=== PATIENT | female | born 1975 | race Hispanic/Latino ===

== ENCOUNTER 2018-06-08 10:34 | Emergency (ER) | payer BC ==
[~2018-06-08] VITALS: Ht 152.4 cm; Wt 85.7 kg
--- OUTSIDE RECORDS SUMMARY | 2018-06-08 10:37 | XMS REPORT ---
Author Author Admin, [place] Organization [facility] Address [address] [address] Phone Allergies, Adverse Reactions, Alerts Allergy Name Reaction Description Start Date Severity Status Provider SHRIMP Critical Active Eden Perry MD Conditions or Problems Problem Name Problem Code Onset Date Status Entry Date Provider Comment Standard Description Annotate Hepatitis B immunization V05.3 Active Eden Perry MD Need for prophylactic vaccination and inoculation against viral hepatitis Hypertriglyceridemia 272.1 Active Eden Perry MD Pure hyperglyceridemia Pre-op exam V72.84 Active Eden Perry MD Preoperative examination, unspecified Abdominal pain 789.00 Active Eden Perry MD Abdominal pain, unspecified site Unspecified ovarian cyst, right side 620.2 Active Eden Perry MD Other and unspecified ovarian cyst Well woman V72.31 Active Eden Perry MD Routine gynecological examination Obesity Active Eden Perry MD Obesity, unspecified BMI 38.0-38.9 Active Eden Perry MD Body Mass Index 38.0-38.9, adult Panniculitis 729.30 Active Eden Perry MD Panniculitis, unspecified site Pre-diabetes 790.29 Active Eden Perry MD Other abnormal glucose VITAMIN D DEFICIENCY 268.9 Active Eden Perry MD Unspecified vitamin D deficiency Influenza ICD-487.1 Inactive Eden Perry MD Viral URI ICD-465.9 Inactive Eden Perry MD Abdominal pain, LLQ ICD-789.04 Inactive Eden Perry MD Dysuria ICD-788.1 Inactive Eden Perry MD Menorrhagia ICD-626.2 Inactive Eden Perry MD Plantar fasciitis ICD-728.71 Inactive Eden Perry MD Allergies, seasonal ICD-477.0 Inactive Lo Eason MD URI (upper respiratory infection) 465.9 Inactive Lo Eason MD Acute upper respiratory infections of unspecified site GERD - reflux, esophageal ICD-530.81 Inactive Eden Perry MD Vaccine against DTP or Tdap ICD-V06.1 Inactive Eden Perry MD STREPTOCOCCAL PHARYNGITIS 034.0 Inactive Harriet Funk MD Streptococcal sore throat STREPTOCOCCAL PHARYNGITIS ICD-034.0 Inactive Harriet Funk MD UTI 599.0 Inactive Harriet Funk MD Urinary tract infection, site not specified UTI ICD-599.0 Inactive Harriet Funk MD ANAPHYLACTIC REACTION DUE TO FOOD ADDITIVES ICD-995.66 Inactive Eden Perry MD FOOT PAIN, BILATERAL ICD-729.5 Inactive Lo Eason MD OBESITY ICD-278.00 Inactive Eden Perry MD WEIGHT GAIN ICD-783.1 Inactive Eden Perry MD ROSACEA ICD-695.3 Inactive Eden Perry MD BRONCHITIS ICD-490 Inactive Eden Perry MD SEBORRHEIC DERMATITIS ICD-690.10 Inactive Eden Perry MD FATIGUE ICD-780.79 Inactive Lo Eason MD SCREENING, CHOLESTEROL V77.91 Inactive Harriet Funk MD Screening for lipoid disorders SCREENING, CHOLESTEROL ICD-V77.91 Inactive Harriet Funk MD SCREENING, DIABETES MELLITUS V77.1 Inactive Harriet Funk MD Screening for diabetes mellitus SCREENING, DIABETES MELLITUS ICD-V77.1 Inactive Harriet Funk MD SCREENING, THYROID DISORDERS V77.0 Inactive Harriet Funk MD Screening for thyroid disorders SCREENING, THYROID DISORDERS ICD-V77.0 Inactive Harriet Funk MD VIRAL ILLNESS ICD-079.89 Inactive Eden Perry MD FOLLICULITIS ICD-704.8 Inactive Lo Eason MD GLUCOSE INTOLERANCE ICD-790.21 Inactive Eden Perry MD OTHER ALOPECIA ICD-704.09 Inactive Lo Eason MD NEED PROPH VACCINATION W/UNSPEC COMB VACCINE V06.9 Inactive Farhana Avelar Need for prophylactic vaccination with unspecified combined vaccine NEED PROPH VACCINATION W/UNSPEC COMB VACCINE ICD-V06.9 Inactive Farhana Avelra Influenza 487.1 Resolved Eden Perry MD Influenza with other respiratory manifestations Abdominal pain 789.00 Resolved Eden Perry MD Abdominal pain, unspecified site Viral URI 465.9 Resolved Eden Perry MD Acute upper respiratory infections of unspecified site Abdominal pain, LLQ 789.04 Resolved Eden Perry MD Abdominal pain, left lower quadrant Dysuria 788.1 Resolved Eden Perry MD Dysuria Dysuria 788.1 Resolved Eden Perry MD Dysuria Menorrhagia 626.2 Resolved Eden Perry MD Excessive or frequent menstruation Plantar fasciitis 728.71 Resolved Eden Perry MD Plantar fascial fibromatosis Allergies, seasonal 477.0 Resolved Lo Eason MD Allergic rhinitis due to pollen Panniculitis 729.30 Resolved Eden Perry MD Panniculitis, unspecified site Pre-diabetes 790.29 Resolved Eden Perry MD Other abnormal glucose GERD - reflux, esophageal 530.81 Resolved Eden Perry MD Esophageal reflux Vaccine against DTP or Tdap V06.1 Resolved Eden Perry MD Need for prophylactic vaccination and inoculation against [id number], combined [DTP] [DTaP] ANAPHYLACTIC REACTION DUE TO FOOD ADDITIVES 995.66 Resolved Eden Perry MD Anaphylactic reaction due to food additives FOOT PAIN, BILATERAL 729.5 Resolved Lo Eason MD Pain in limb OBESITY 278.00 Resolved Eden Perry MD Obesity, unspecified WEIGHT GAIN 783.1 Resolved Eden Perry MD Abnormal weight gain ROSACEA 695.3 Resolved Eden Perry MD Rosacea VITAMIN D DEFICIENCY 268.9 Resolved Eden Perry MD Unspecified vitamin D deficiency BRONCHITIS 490 Resolved Eden Perry MD Bronchitis, not specified as acute or chronic SEBORRHEIC DERMATITIS 690.10 Resolved Eden Perry MD Seborheic dermatitis, unspecified FATIGUE 780.79 Resolved Eden Perry MD Other malaise and fatigue FATIGUE 780.79 Resolved Lo Eason MD Other malaise and fatigue VIRAL ILLNESS 079.89 Resolved Eden Perry MD Other specified viral infection possible influenza FOLLICULITIS 704.8 Resolved Lo Eason MD Other specified diseases of hair and hair follicles scalp GLUCOSE INTOLERANCE 790.21 Resolved Eden Perry MD Impaired fasting glucose OTHER ALOPECIA 704.09 Resolved Lo Eason MD Other alopecia Medication List Medication Instructions Start Date Stop Date Generic Name ND Status Provider Patient Instruction ALDACTONE 100 MG ORAL TABLET 1 tab daily for hair loss SPIRONOLACTONE 69867892312 Active Eden Perry MD Active JUNEL 04/22 1-20 MG-MCG ORAL TABLET Take one tab by mouth daily NORETHINDRONE ACET-ETHINYL EST 09491075120 Active Eden Perry MD Active ADRENACLICK 0.3 MG/0.3ML INJECTION SOLUTION AUTO-INJECTOR use as directed EPINEPHRINE 98050159043 Active Harriet Funk MD Active TAMIFLU 75 MG ORAL CAPSULE 1 tab twice a day TAMIFLU 75 MG ORAL CAPSULE 809377 OSELTAMIVIR PHOSPHATE Inactive NAPROXEN 500 MG ORAL TABLET 1 by mouth twice a day as needed for pain and inflammation NAPROXEN 500 MG ORAL TABLET 110797 NAPROXEN Inactive TESSALON PERLES 100 MG ORAL CAPSULE 1 by mouth 3 times a day as needed for cough TESSALON PERLES 100 MG ORAL CAPSULE 175594 BENZONATATE Inactive BENTYL 10 MG ORAL CAPSULE 1 by mouth 4 times a day as needed for abdominal pain or cramping BENTYL 10 MG ORAL CAPSULE DICYCLOMINE HCL Inactive ZOFRAN ODT 4 MG ORAL TABLET DISINTEGRATING 1 tablet every 8 hours as needed for nausea/vomiting ZOFRAN ODT 4 MG ORAL TABLET DISINTEGRATING ONDANSETRON Inactive MACROBID 100 MG ORAL CAPSULE 1 by mouth twice a day MACROBID 100 MG ORAL CAPSULE 0544692 NITROFURANTOIN MONOHYD MACRO Inactive VITAMIN D3 57669 UNIT ORAL CAPSULE 1 capsule by mouth every week for8 weeks VITAMIN D3 05285 UNIT ORAL CAPSULE CHOLECALCIFEROL Inactive MIRALAX ORAL POWDER 1 capful mixed with 4 oz juice/water/coffee 1-2 times per day to achieve soft bowel movement every day MIRALAX ORAL POWDER 193366 POLYETHYLENE GLYCOL 3350 Inactive PHENTERMINE HCL 37.5 MG ORAL TABLET Take 1 tablet by mouth daily PHENTERMINE HCL 37.5 MG ORAL TABLET 649357 PHENTERMINE HCL Inactive AUGMENTIN 875-125 MG ORAL TABLET 1 by mouth twice a day AUGMENTIN 875-125 MG ORAL TABLET 920730 AMOXICILLIN-POT CLAVULANATE Inactive CHERATUSSIN AC 100-10 MG/5ML ORAL SYRUP 2 teaspoons (10mL) by mouth every 4 hours as needed for cough CHERATUSSIN AC 100-10 MG/5ML ORAL SYRUP 401836 GUAIFENESIN-CODEINE Inactive CHERATUSSIN AC 100-10 MG/5ML ORAL SYRUP 2 teaspoons (10mL) by mouth every 4 hours as needed for cough CHERATUSSIN AC 100-10 MG/5ML ORAL SYRUP 454392 GUAIFENESIN-CODEINE Inactive CETIRIZINE HCL 10 MG ORAL TABLET Take 1 tablet by mouth at bedtime CETIRIZINE HCL 10 MG ORAL TABLET 8329257 CETIRIZINE HCL Inactive NAPROXEN 500 MG ORAL TABLET 1 by mouth twice a day as needed for pain and inflammation NAPROXEN 500 MG ORAL TABLET 289813 NAPROXEN Inactive MACROBID 100 MG ORAL CAPSULE 1 by mouth twice a day MACROBID 100 MG ORAL CAPSULE 9416059 NITROFURANTOIN MONOHYD MACRO Inactive PHENTERMINE HCL 37.5 MG ORAL CAPSULE 1 by mouth daily PHENTERMINE HCL 37.5 MG ORAL CAPSULE 477838 PHENTERMINE HCL Inactive MACROBID 100 MG ORAL CAPSULE 1 by mouth twice a day MACROBID 100 MG ORAL CAPSULE 9283617 NITROFURANTOIN MONOHYD MACRO Inactive VITAMIN D (ERGOCALCIFEROL) 11406 UNIT ORAL CAPSULE One tablet by mouth once per week for 8 weeks VITAMIN D (ERGOCALCIFEROL) 91707 UNIT ORAL CAPSULE 5010879 ERGOCALCIFEROL Inactive CETIRIZINE HCL 10 MG ORAL TABLET 1 tablet daily CETIRIZINE HCL 10 MG ORAL TABLET 3186855 CETIRIZINE HCL Inactive LORATADINE 10 MG ORAL TABLET 1 By Mouth once a day as needed for allergies LORATADINE 10 MG ORAL TABLET 658201 LORATADINE Inactive CHERATUSSIN AC 100-10 MG/5ML ORAL SYRUP 2 teaspoons (10mL) by mouth every 4 hours as needed for cough CHERATUSSIN AC 100-10 MG/5ML ORAL SYRUP 964183 GUAIFENESIN-CODEINE Inactive TESSALON PERLES 100 MG ORAL CAPSULE 1 by mouth 3 times a day as needed for cough TESSALON PERLES 100 MG ORAL CAPSULE 875947 BENZONATATE Inactive BACTRIM DS 800-160 MG ORAL TABLET 1 tab by mouth twice a day BACTRIM DS 800-160 MG ORAL TABLET 370396 TRIMETHOPRIM-SULFAMETHOXAZOLE Inactive PEPCID COMPLETE 10-800-165 MG ORAL TABLET CHEWABLE 1 tablet as needed. No more than 2 tablets per 24 hours. PEPCID COMPLETE 10-800-165 MG ORAL TABLET CHEWABLE FAMOTIDINE-CA CARB-MAG HYDROX Inactive PRILOSEC 40 MG ORAL CAPSULE DELAYED RELEASE 1 by mouth every day PRILOSEC 40 MG ORAL CAPSULE DELAYED RELEASE OMEPRAZOLE Inactive CIPRO 500 MG ORAL TABLET 1 by mouth twice a day CIPRO 500 MG ORAL TABLET 668511 CIPROFLOXACIN HCL Inactive TERAZOL 3 0.8 % VAGINAL CREAM Apply nightly for 3 days TERAZOL 3 0.8 % VAGINAL CREAM TERCONAZOLE Inactive NYSTATIN 199512 UNIT/GM EXTERNAL CREAM Apply to affected area 4 times a day until 48 hours after it completely resolves NYSTATIN 436719 UNIT/GM EXTERNAL CREAM 552118 NYSTATIN Inactive AUGMENTIN 875-125 MG ORAL TABLET 1 by mouth twice a day AUGMENTIN 875-125 MG ORAL TABLET 759485 AMOXICILLIN-POT CLAVULANATE Inactive CIPRO 500 MG ORAL TABLET 1 by mouth twice a day CIPRO 500 MG ORAL TABLET 786300 CIPROFLOXACIN HCL Inactive PYRIDIUM 100 MG ORAL TABLET 1 by mouth 3 times a day as needed PYRIDIUM 100 MG ORAL TABLET 7925252 PHENAZOPYRIDINE HCL Inactive ZYRTEC ALLERGY 10 MG ORAL TABLET 1 by mouth every day ZYRTEC ALLERGY 10 MG ORAL TABLET 3467857 CETIRIZINE HCL Inactive VITAMIN D (ERGOCALCIFEROL) 99088 UNIT ORAL CAPSULE One tablet by mouth once per week for 8 weeks VITAMIN D (ERGOCALCIFEROL) 90372 UNIT ORAL CAPSULE 9015220 ERGOCALCIFEROL Inactive METROGEL 1 % EXTERNAL GEL Apply once a day to affected areas of face METROGEL 1 % EXTERNAL GEL 270430 METRONIDAZOLE Inactive AZITHROMYCIN 250 MG ORAL TABLET 2 tablets by mouth on day one then one tablet by mouth each day for a total of 5 days AZITHROMYCIN 250 MG ORAL TABLET 105983 AZITHROMYCIN Inactive CHERATUSSIN AC 100-10 MG/5ML ORAL SYRUP 2 teaspoons (10mL) by mouth every 4 hours as needed for cough CHERATUSSIN AC 100-10 MG/5ML ORAL SYRUP 039522 GUAIFENESIN-CODEINE Inactive KETOCONAZOLE 2 % EXTERNAL SHAMPOO apply to scalp 2-3 times a week KETOCONAZOLE 2 % EXTERNAL SHAMPOO 580521 KETOCONAZOLE Inactive VITAMIN D (ERGOCALCIFEROL) 83060 UNIT ORAL CAPSULE One tablet by mouth once per week for 6 weeks VITAMIN D (ERGOCALCIFEROL) 99068 UNIT ORAL CAPSULE 1857347 ERGOCALCIFEROL Inactive CHERATUSSIN AC 100-10 MG/5ML ORAL SYRUP 2 teaspoons (10mL) by mouth every 4 hours as needed for cough CHERATUSSIN AC 100-10 MG/5ML ORAL SYRUP 755138 GUAIFENESIN-CODEINE Inactive TESSALON PERLES 100 MG ORAL CAPSULE 1 by mouth 3 times a day as needed for cough TESSALON PERLES 100 MG ORAL CAPSULE 125273 BENZONATATE Inactive DOXYCYCLINE HYCLATE 100 MG ORAL CAPSULE 1 by mouth twice a day DOXYCYCLINE HYCLATE 100 MG ORAL CAPSULE 8314141 DOXYCYCLINE HYCLATE Inactive NAPROXEN 500 MG ORAL TABLET 1 by mouth twice a day as needed for pain and inflammation NAPROXEN 500 MG ORAL TABLET 529738 NAPROXEN Inactive TAMIFLU 75 MG ORAL CAPSULE 1 tab twice a day OSELTAMIVIR PHOSPHATE 16372535717 No Longer Active Eden Perry MD Active NAPROXEN 500 MG ORAL TABLET 1 by mouth twice a day as needed for pain and inflammation NAPROXEN 50381430352 No Longer Active Eden Perry MD Active TESSALON PERLES 100 MG ORAL CAPSULE 1 by mouth 3 times a day as needed for cough BENZONATATE 91312615589 No Longer Active Eden Perry MD Active BENTYL 10 MG ORAL CAPSULE 1 by mouth 4 times a day as needed for abdominal pain or cramping DICYCLOMINE HCL 70797128711 No Longer Active Eden Perry MD Active ZOFRAN ODT 4 MG ORAL TABLET DISINTEGRATING 1 tablet every 8 hours as needed for nausea/vomiting ONDANSETRON 98449999610 No Longer Active Eden Perry MD Active MACROBID 100 MG ORAL CAPSULE 1 by mouth twice a day NITROFURANTOIN MONOHYD MACRO 97525764319 No Longer Active Eden Perry MD Active VITAMIN D3 58901 UNIT ORAL CAPSULE 1 capsule by mouth every week for8 weeks CHOLECALCIFEROL 34117187239 No Longer Active Eden Perry MD Active MIRALAX ORAL POWDER 1 capful mixed with 4 oz juice/water/coffee 1-2 times per day to achieve soft bowel movement every day POLYETHYLENE GLYCOL 3350 71089203097 No Longer Active Eden Perry MD Active PHENTERMINE HCL 37.5 MG ORAL TABLET Take 1 tablet by mouth daily PHENTERMINE HCL 35791783746 No Longer Active Lo Eason MD Active AUGMENTIN 875-125 MG ORAL TABLET 1 by mouth twice a day AMOXICILLIN-POT CLAVULANATE 86834593074 No Longer Active Eden Perry MD Active CHERATUSSIN AC 100-10 MG/5ML ORAL SYRUP 2 teaspoons (10mL) by mouth every 4 hours as needed for cough GUAIFENESIN-CODEINE 31648730853 No Longer Active Eden Perry MD Active CHERATUSSIN AC 100-10 MG/5ML ORAL SYRUP 2 teaspoons (10mL) by mouth every 4 hours as needed for cough GUAIFENESIN-CODEINE 52335217736 No Longer Active Eden Perry MD Active CETIRIZINE HCL 10 MG ORAL TABLET Take 1 tablet by mouth at bedtime CETIRIZINE HCL 03835941227 No Longer Active Eden Perry MD Active NAPROXEN 500 MG ORAL TABLET 1 by mouth twice a day as needed for pain and inflammation NAPROXEN 93101749355 No Longer Active Eden Perry MD Active MACROBID 100 MG ORAL CAPSULE 1 by mouth twice a day NITROFURANTOIN MONOHYD MACRO 63468878784 No Longer Active Lo Eason MD Active PHENTERMINE HCL 37.5 MG ORAL CAPSULE 1 by mouth daily PHENTERMINE HCL 32848025306 No Longer Active Eden Perry MD Active MACROBID 100 MG ORAL CAPSULE 1 by mouth twice a day NITROFURANTOIN MONOHYD MACRO 48592116278 No Longer Active Lo Eason MD Active VITAMIN D (ERGOCALCIFEROL) 10244 UNIT ORAL CAPSULE One tablet by mouth once per week for 8 weeks ERGOCALCIFEROL 91208685472 No Longer Active Eden Perry MD Active CETIRIZINE HCL 10 MG ORAL TABLET 1 tablet daily CETIRIZINE HCL 18802757974 No Longer Active Eden Perry MD Active FLONASE ALLERGY RELIEF 50 MCG/ACT NASAL SUSPENSION 2 sprays each nostril every day FLUTICASONE PROPIONATE 12633570032 No Longer Active Lo Eason MD Active LORATADINE 10 MG ORAL TABLET 1 By Mouth once a day as needed for allergies LORATADINE 37539685463 No Longer Active Eden Perry MD Active CHERATUSSIN AC 100-10 MG/5ML ORAL SYRUP 2 teaspoons (10mL) by mouth every 4 hours as needed for cough GUAIFENESIN-CODEINE 20518815491 No Longer Active Lo Eason MD Active TESSALON PERLES 100 MG ORAL CAPSULE 1 by mouth 3 times a day as needed for cough BENZONATATE 21807916454 No Longer Active Lo Eason MD Active BACTRIM DS 800-160 MG ORAL TABLET 1 tab by mouth twice a day TRIMETHOPRIM-SULFAMETHOXAZOLE 16659897490 No Longer Active Radha Ramos APRN Active PEPCID COMPLETE 10-800-165 MG ORAL TABLET CHEWABLE 1 tablet as needed. No more than 2 tablets per 24 hours. FAMOTIDINE-CA CARB-MAG HYDROX 16818609938 No Longer Active Eden Perry MD Active PRILOSEC 40 MG ORAL CAPSULE DELAYED RELEASE 1 by mouth every day OMEPRAZOLE 06377260965 No Longer Active Eden Perry MD Active CIPRO 500 MG ORAL TABLET 1 by mouth twice a day CIPROFLOXACIN HCL 97654263549 No Longer Active Radha Ramos APRN Active TERAZOL 3 0.8 % VAGINAL CREAM Apply nightly for 3 days TERCONAZOLE 65721033488 No Longer Active Radha Ramos APRN Active NYSTATIN 604825 UNIT/GM EXTERNAL CREAM Apply to affected area 4 times a day until 48 hours after it completely resolves NYSTATIN 25273672366 No Longer Active Eden Perry MD Active AUGMENTIN 875-125 MG ORAL TABLET 1 by mouth twice a day AMOXICILLIN-POT CLAVULANATE 23758155174 No Longer Active Harriet Funk MD Active CIPRO 500 MG ORAL TABLET 1 by mouth twice a day CIPROFLOXACIN HCL 26522978973 No Longer Active Harriet Funk MD Active PYRIDIUM 100 MG ORAL TABLET 1 by mouth 3 times a day as needed PHENAZOPYRIDINE HCL 60086412415 No Longer Active Harriet Funk MD Active ZYRTEC ALLERGY 10 MG ORAL TABLET 1 by mouth every day CETIRIZINE HCL 52457148395 No Longer Active Eden Perry MD Active VITAMIN D (ERGOCALCIFEROL) 16343 UNIT ORAL CAPSULE One tablet by mouth once per week for 8 weeks ERGOCALCIFEROL 45124507339 No Longer Active Harriet Funk MD Active METROGEL 1 % EXTERNAL GEL Apply once a day to affected areas of face METRONIDAZOLE 66563720555 No Longer Active Radha Ramos APRN Active AZITHROMYCIN 250 MG ORAL TABLET 2 tablets by mouth on day one then one tablet by mouth each day for a total of 5 days AZITHROMYCIN 83719622612 No Longer Active Harriet Funk MD Active CHERATUSSIN AC 100-10 MG/5ML ORAL SYRUP 2 teaspoons (10mL) by mouth every 4 hours as needed for cough GUAIFENESIN-CODEINE 88931504927 No Longer Active Harriet Funk MD Active KETOCONAZOLE 2 % EXTERNAL SHAMPOO apply to scalp 2-3 times a week KETOCONAZOLE 70655302907 No Longer Active Radha Ramos APRN Active VITAMIN D (ERGOCALCIFEROL) 64812 UNIT ORAL CAPSULE One tablet by mouth once per week for 6 weeks ERGOCALCIFEROL 86144980476 No Longer Active Harriet Funk MD Active CHERATUSSIN AC 100-10 MG/5ML ORAL SYRUP 2 teaspoons (10mL) by mouth every 4 hours as needed for cough GUAIFENESIN-CODEINE 77476735881 No Longer Active Harriet Funk MD Active TESSALON PERLES 100 MG ORAL CAPSULE 1 by mouth 3 times a day as needed for cough BENZONATATE 64432054526 No Longer Active Harriet Funk MD Active DOXYCYCLINE HYCLATE 100 MG ORAL CAPSULE 1 by mouth twice a day DOXYCYCLINE HYCLATE 52765636682 No Longer Active Harriet Funk MD Active NAPROXEN 500 MG ORAL TABLET 1 by mouth twice a day as needed for pain and inflammation NAPROXEN 80168540870 No Longer Active Eden Perry MD Active Advance Directives Directive Description Start Date LIVING WILL ON FILE Immunizations Vaccine Administration Date Value Standard Description hepatitis A immunization #2 given as Hep A/Hep B # 2. hepatitis A vaccine, unspecified formulation hepatitis B vaccine #3 given as Hep A/Hep B # 2. hepatitis B vaccine, unspecified formulation Twinrix, hepatitis A inactivated and hepatitis B (recombinant) vaccine, 2nd dose, administered by given hepatitis A immunization #1 given as Hep A/Hep B # 1. hepatitis A vaccine, unspecified formulation hepatitis B vaccine #2 given given as Hep A/Hep B # 1. hepatitis B vaccine, unspecified formulation Twinrix, hepatitis A inactivated and hepatitis B (recombinant) vaccine, 1st dose given hepatitis A and hepatitis B vaccine Tetanus toxoid, reduced diphtheria toxoid and acellular Pertussis vaccine, absorbed (TdaP) given given tetanus toxoid, reduced diphtheria toxoid, and acellular pertussis vaccine, adsorbed influenza immunization (Flu Vax) has been administered given influenza virus vaccine, unspecified formulation hepatitis B vaccine #1 given given hepatitis B vaccine, unspecified formulation Vital Signs Date Name Value Unit Range Description blood pressure, diastolic 79 mm[Hg] BP harris blood pressure, systolic 118 mm[Hg] BP sys height E&M 61 [in_us] Bdy height pulse rate E&M 82 /min Heart rate temperature E&M 98.5 [degF] Body temperature weight E&M 180 [lb_av] Weight Measured blood pressure, diastolic 84 mm[Hg] BP harris blood pressure, systolic 123 mm[Hg] BP sys height E&M 61 [in_us] Bdy height pulse rate E&M 86 /min Heart rate temperature E&M 97.0 [degF] Body temperature weight E&M 179 [lb_av] Weight Measured blood pressure, diastolic 80 mm[Hg] BP harris blood pressure, systolic 116 mm[Hg] BP sys height E&M 61 [in_us] Bdy height pulse rate E&M 83 /min Heart rate temperature E&M 97 [degF] Body temperature weight E&M 182 [lb_av] Weight Measured blood pressure, diastolic 86 mm[Hg] BP harris blood pressure, systolic 131 mm[Hg] BP sys height E&M 61 [in_us] Bdy height pulse rate E&M 110 /min Heart rate temperature E&M 98.1 [degF] Body temperature weight E&M 179 [lb_av] Weight Measured blood pressure, diastolic 76 mm[Hg] BP harris blood pressure, systolic 127 mm[Hg] BP sys height E&M 61 [in_us] Bdy height pulse rate E&M 81 /min Heart rate temperature E&M 98.1 [degF] Body temperature weight E&M 179 [lb_av] Weight Measured blood pressure, diastolic 76 mm[Hg] BP harris blood pressure, systolic 127 mm[Hg] BP sys height E&M 61 [in_us] Bdy height pulse rate E&M 87 /min Heart rate temperature E&M 98.8 [degF] Body temperature weight E&M 182 [lb_av] Weight Measured Diagnostic Results Date Name Value Unit Range Description Lab Report: Urinalysis, Routine, Microscopic Examination, Urine Culture, ... - Urinalysis mucus on urinalysis Present Not Estab. Lab Report: Lipid Panel, FSH and LH, Hemoglobin A1c, DHEA-Sulfate, Testo ... - Chemistry prolactin, serum 12.9 ng/mL 4.8-23.3 human chorionic gonadotropin, total, serum <1 mIU/mL m[iU]/mL Lab Report: Urinalysis, Routine, Microscopic Examination, Urine Culture, ... - Urinalysis WBC urine on microscopy 6-10 /hpf {Cells}/[HPF] 0 - 5 Lab Report: Lipid Panel, FSH and LH, Hemoglobin A1c, DHEA-Sulfate, Testo ... - Chemistry follicle stimulating hormone, serum 2.2 m[iU]/mL testosterone, total 18 ng/dL 8-48 Lab Report: CBC With Differential/Platelet, Comp. Metabolic Panel (14), ... - Chemistry urea nitrogen, blood 13 mg/dL 6-24 Lab Report: CBC With Differential/Platelet, Comp. Metabolic Panel (14), ... - Hematology erythrocyte (RBC) count 4.42 X10E6/UL 10*6/mm3 3.77-5.28 Office Visit: Dysuria, viral URI --> macrobid - Urinalysis nitrite, urine, semiquantitative negative Lab Report: LIPID PANEL, HDL CHOLESTEROL, TRIGLYCERIDES, LDL-CHOLESTEROL ... - Chemistry cholesterol/HDL ratio, serum, percent 3.0 (calc) < OR=5.0 Lab Report: Urinalysis, Routine, Microscopic Examination, Urine Culture, ... - Urinalysis urine color Yellow Yellow Lab Report: BASIC METABOLIC PANEL, CBC (INCLUDES DIFF/PLT) - Hematology mean platelet volume 9.2 fL 7.5-12.5 Lab Report: CBC With Differential/Platelet, Comp. Metabolic Panel (14), ... - Chemistry urea nitrogen/creatinine ratio, serum 21 9-23 Lab Report: CBC With Differential/Platelet, Comp. Metabolic Panel (14), ... - Hematology mean corpuscular volume, RBC 85 fL 79-97 Lab Report: CBC With Differential/Platelet, Comp. Metabolic Panel (14), ... - Chemistry HDL cholesterol, serum 46 mg/dL >39 Lab Report: CBC With Differential/Platelet, Comp. Metabolic Panel (14), ... - Hematology monocytes as percent of blood leukocytes 7 % Not Estab. Lab Report: CBC With Differential/Platelet, Comp. Metabolic Panel (14), ... - Chemistry creatinine, serum 0.61 mg/dL 0.57-1.00 bilirubin, serum, total <0.2 mg/dL mg/dL 0.0-1.2 Lab Report: CBC With Differential/Platelet, Comp. Metabolic Panel (14), ... - Hematology Eosinophil Absolute Count 0.2 X10E3/UL 10*3/uL 0.0-0.4 Office Visit: Dysuria, viral URI --> macrobid - Urinalysis blood in urine (hemoglobin) by dipstick 2+ Lab Report: CBC With Differential/Platelet, Comp. Metabolic Panel (14), ... - Hematology leukocyte count, blood 7.9 X10E3/UL 10*3/mm3 3.4-10.8 Lab Report: Urinalysis, Routine, Microscopic Examination, Urine Culture, ... - Urinalysis pH, urine, semiquantitative 5.0 5.0-7.5 Lab Report: CBC With Differential/Platelet, Comp. Metabolic Panel (14), ... - Chemistry potassium, serum 4.3 mmol/L 3.5-5.2 albumin, serum 4.3 g/dL 3.5-5.5 Lab Report: CBC With Differential/Platelet, Comp. Metabolic Panel (14), ... - Hematology lymphocyte count, blood, automated 2.5 X10E3/UL 10*3/mm3 0.7-3.1 Lab Report: CBC With Differential/Platelet, Comp. Metabolic Panel (14), ... - Microbiology Neisseria gonorrhoeae DNA probe Negative Negative Lab Report: CBC With Differential/Platelet, Comp. Metabolic Panel (14), ... - Chemistry sodium, serum 141 mmol/L 134-144 Lab Report: Urinalysis, Routine, Microscopic Examination, Urine Culture, ... - Urinalysis urine culture No growth Lab Report: CBC With Differential/Platelet, Comp. Metabolic Panel (14), ... - Hematology neutrophils as percent of blood leukocytes 59 % Not Estab. Lab Report: Urinalysis, Routine, Microscopic Examination, Urine Culture, ... - Chemistry specific gravity, body fluid >=1.030 1.005-1.030 RBC, Urine 0-2 /hpf /[HPF] 0 - 2 Lab Report: Urinalysis, Routine, Microscopic Examination, Urine Culture, ... - Urinalysis protein, urine, semiquantitative (dipstick) Negative Negative/Trace Lab Report: CBC With Differential/Platelet, Comp. Metabolic Panel (14), ... - Serology rapid plasma reagin antibody, serum Non Reactive Non Reactive Lab Report: CBC With Differential/Platelet, Comp. Metabolic Panel (14), ... - Microbiology microscopic exam See below: Lab Report: BASIC METABOLIC PANEL, CBC (INCLUDES DIFF/PLT) - Chemistry Absolute Neutrophil count 5338 {Cells}/uL [id number] Lab Report: CBC With Differential/Platelet, Comp. Metabolic Panel (14), ... - Chemistry triglyceride, serum, fasting 151 mg/dL 0-149 calcium, serum 9.4 mg/dL 8.7-10.2 Lab Report: Urinalysis, Routine, Microscopic Examination, Urine Culture, ... - Urinalysis bacteria, urine microscopy None seen None seen/Few Office Visit: Dysuria, viral URI --> macrobid - Urinalysis specific gravity, urine 1.010 Lab Report: CBC With Differential/Platelet, Comp. Metabolic Panel (14), ... - Chemistry protein, total, serum 7.0 g/dL 6.0-8.5 alkaline phosphatase, serum 79 U/L 39-117 Office Visit: Dysuria, viral URI --> macrobid - Lab Microbial identification kit, rapid strep method negative Lab Report: Lipid Panel, FSH and LH, Hemoglobin A1c, DHEA-Sulfate, Testo ... - Chemistry 17-hydroxyprogesterone, serum or plasma 97 ng/dL Lab Report: CBC With Differential/Platelet, Comp. Metabolic Panel (14), ... - Hematology lymphocytes as percent of blood leukocytes 31 % Not Estab. Lab Report: CBC With Differential/Platelet, Comp. Metabolic Panel (14), ... - Chemistry hemoglobin A1C, blood, as % of total hemoglobin 5.7 % 4.8-5.6 Lab Report: BASIC METABOLIC PANEL, CBC (INCLUDES DIFF/PLT) - Hematology eosinophils as percent of blood leukocytes 1.0 % Lab Report: CBC With Differential/Platelet, Comp. Metabolic Panel (14), ... - Genetics/fertility eGFR if 128 mL/min/1.73m2 >59 Lab Report: CBC With Differential/Platelet, Comp. Metabolic Panel (14), ... - Chemistry globulin, serum 2.7 1.5-4.5 Estimated Glomerular Filtration Rate (calc) 111 mL/min/1.73m2 >59 vitamin D 25-hydroxy, serum 29.2 ng/mL 30.0-100.0 Lab Report: Urinalysis, Routine, Microscopic Examination, Urine Culture, ... - Basic Occult Blood, urine Negative Negative Lab Report: CBC With Differential/Platelet, Comp. Metabolic Panel (14), ... - Serology hepatitis B surface antibody 7.5 Immunity>9.9 Lab Report: Lipid Panel, FSH and LH, Hemoglobin A1c, DHEA-Sulfate, Testo ... - Chemistry luteinizing hormone, serum 3.6 m[iU]/mL Lab Report: CBC With Differential/Platelet, Comp. Metabolic Panel (14), ... - Chemistry thyroxine, serum, total 8.2 ug/dL 4.5-12.0 Lab Report: Urinalysis, Routine, Microscopic Examination, Urine Culture, ... - Urinalysis urobilinogen, urine, semiquantitative (dipstick) 0.2 0.2-1.0 Lab Report: CBC With Differential/Platelet, Comp. Metabolic Panel (14), ... - Hematology monocyte count, blood, automated 0.5 X10E3/UL 10*3/uL 0.1-0.9 Lab Report: CBC With Differential/Platelet, Comp. Metabolic Panel (14), ... - Chemistry thyroid stimulating hormone, serum 1.050 u[iU]/mL 0.450-4.500 Office Visit: Dysuria, viral URI --> macrobid - Chemistry beta HCG, urine, semiquantitative negative Lab Report: CBC With Differential/Platelet, Comp. Metabolic Panel (14), ... - Chemistry very low density lipoproteins 30 mg/dL 5-40 Lab Report: LIPID PANEL, HDL CHOLESTEROL, TRIGLYCERIDES, LDL-CHOLESTEROL ... - Chemistry cholesterol, non-HDL, total 89 MG/DL (CALC) mg/dL Lab Report: CBC With Differential/Platelet, Comp. Metabolic Panel (14), ... - Chemistry hepatitis B surface antigen Negative Negative Lab Report: Urinalysis, Routine, Microscopic Examination, Urine Culture, ... - Urinalysis epithelial cells, urine >10 /[LPF] 0 - 10 Lab Report: CBC With Differential/Platelet, Comp. Metabolic Panel (14), ... - Chemistry chloride, serum 102 mmol/L 96-106 triiodothyronine resin uptake 31 % 24-39 Lab Report: BASIC METABOLIC PANEL, CBC (INCLUDES DIFF/PLT) - Hematology Absolute Eosinophil count 82 {Cells}/uL 15-500 Lab Report: Urinalysis, Routine, Microscopic Examination, Urine Culture, ... - Urinalysis leukocyte esterase, urine, by dipstick 2+ Negative Lab Report: CBC With Differential/Platelet, Comp. Metabolic Panel (14), ... - Hematology mean corpuscular hemoglobin concentration, RBC 32.2 G/DL % 31.5-35.7 Lab Report: CBC With Differential/Platelet, Comp. Metabolic Panel (14), ... - Serology hepatitis C antibody, serum <0.1 0.0-0.9 Lab Report: CBC With Differential/Platelet, Comp. Metabolic Panel (14), ... - Chemistry Absolute Neutrophils 4.6 X10E3/UL 10*3/uL 1.4-7.0 Lab Report: Urinalysis, Routine, Microscopic Examination, Urine Culture, ... - Urinalysis bilirubin, urine Negative Negative Lab Report: CBC With Differential/Platelet, Comp. Metabolic Panel (14), ... - Chemistry LDL cholesterol, serum 70 mg/dL 0-99 albumin/globulin ratio, serum 1.6 1.2-2.2 Lab Report: BASIC METABOLIC PANEL, CBC (INCLUDES DIFF/PLT) - Hematology Absolute Monocyte count 517 {Cells}/uL 200-950 Lab Report: CBC With Differential/Platelet, Comp. Metabolic Panel (14), ... - Chemistry cholesterol, serum 146 mg/dL 100-199 Lab Report: CBC With Differential/Platelet, Comp. Metabolic Panel (14), ... - Lab chlamydia DNA probe Negative Negative Lab Report: Urinalysis, Routine, Microscopic Examination, Urine Culture, ... - Urinalysis appearance, urine Cloudy Clear Lab Report: CBC With Differential/Platelet, Comp. Metabolic Panel (14), ... - Chemistry aspartate aminotransferase (SGOT), serum 16 U/L 0-40 Lab Report: CBC With Differential/Platelet, Comp. Metabolic Panel (14), ... - Hematology red blood cell distribution width 14.4 % 12.3-15.4 Lab Report: LIPID PANEL, HDL CHOLESTEROL, TRIGLYCERIDES, LDL-CHOLESTEROL ... - Chemistry B-12, serum 336 pg/mL 200-1100 Lab Report: Urinalysis, Routine, Microscopic Examination, Urine Culture, ... - Urinalysis urinalysis, microscopic examination See below: Lab Report: LIPID PANEL, HDL CHOLESTEROL, TRIGLYCERIDES, LDL-CHOLESTEROL ... - Chemistry globulins, serum, total 3.2 G/DL (CALC) g/dL 1.9-3.7 Lab Report: Urinalysis, Routine, Microscopic Examination, Urine Culture, ... - Urinalysis Crystal Type, Urine Calcium Oxalate N/A Lab Report: CBC With Differential/Platelet, Comp. Metabolic Panel (14), ... - Chemistry immature granulocytes, percentage of total cells, blood 0 % Not Estab. Lab Report: CBC With Differential/Platelet, Comp. Metabolic Panel (14), ... - Hematology hematocrit, blood 37.6 % 34.0-46.6 basophils as percent of blood leukocytes 1 % Not Estab. Lab Report: LIPID PANEL, HDL CHOLESTEROL, TRIGLYCERIDES, LDL-CHOLESTEROL ... - Chemistry folate, serum 4.7 ng/mL Lab Report: LIPID PANEL, LIPID PANEL, LIPID PANEL, LIPID PANEL, LIPID PA ... - Chemistry Vitamin D, 25 Hydroxy D3 16 ng/mL See Note: Lab Report: CBC With Differential/Platelet, Comp. Metabolic Panel (14), ... - Serology rubella antibody, serum, IgG 19.60 Immune >0.99 Lab Report: CBC With Differential/Platelet, Comp. Metabolic Panel (14), ... - Chemistry carbon dioxide, venous blood 26 mmol/L 20-29 Lab Report: Urinalysis, Routine, Microscopic Examination, Urine Culture, ... - Chemistry nitrate, urine Negative Negative Lab Report: CBC With Differential/Platelet, Comp. Metabolic Panel (14), ... - Chemistry alanine aminotransferase (SGPT), serum 17 U/L 0-32 free thyroxine index 2.5 1.2-4.9 Lab Report: CBC With Differential/Platelet, Comp. Metabolic Panel (14), ... - Hematology mean corpuscular hemoglobin, RBC 27.4 pg 26.6-33.0 Office Visit: Foot pain - Chemistry blood glucose, fasting 89 mg/dL Lab Report: Lipid Panel, FSH and LH, Hemoglobin A1c, DHEA-Sulfate, Testo ... - Chemistry dehydroepiandrosterone sulfate, serum 160.4 ug/dL 57.3-279.2 Lab Report: CBC With Differential/Platelet, Lipid Panel, Testosterone,Fr ... - Chemistry dehydroepiandrosterone, serum 187 ng/dL 31-701 Lab Report: CBC With Differential/Platelet, Comp. Metabolic Panel (14), ... - Hematology hemoglobin, blood 12.1 g/dL 11.1-15.9 Lab Report: Urinalysis, Routine, Microscopic Examination, Urine Culture, ... - Urinalysis glucose, urine, semiquantitative Negative Negative Lab Report: CBC With Differential/Platelet, Comp. Metabolic Panel (14), ... - Hematology basophil count, absolute 0.1 x10E3/uL 0.0-0.2 Lab Report: BASIC METABOLIC PANEL, CBC (INCLUDES DIFF/PLT) - Chemistry lymphocytes, absolute 2222 CELLS/UL 10*3/uL 850-3900 Lab Report: Urinalysis, Routine, Microscopic Examination, Urine Culture, ... - Urinalysis urine crystals, microscopic Present /[HPF] N/A Lab Report: CBC With Differential/Platelet, Lipid Panel, Testosterone,Fr ... - Chemistry testosterone, serum, free 0.6 pg/mL 0.0-2.2 Lab Report: LIPID PANEL, LIPID PANEL, LIPID PANEL, LIPID PANEL, LIPID PA ... - Chemistry Vitamin D, 25 Hydroxy D2 <4 ng/mL ng/mL See Note: Lab Report: CBC With Differential/Platelet, Comp. Metabolic Panel (14), ... - Hematology eosinophils as percent of blood leukocytes 2 % Not Estab. Lab Report: CBC With Differential/Platelet, Comp. Metabolic Panel (14), ... - Chemistry blood glucose, random 83 mg/dL 65-99 Lab Report: CBC With Differential/Platelet, Comp. Metabolic Panel (14), ... - Hematology platelet count 341 X10E3/UL 10*3/mm3 150-379 Lab Report: Urinalysis, Routine, Microscopic Examination, Urine Culture, ... - Urinalysis ketones, urine, by test strip Trace Negative Encounters Date Encounter Provider Code Facility 14:00:20 AUDIO VISUAL COLLECTIONS COORDINATOR Est Patient Exp Problem - [id number] Eden Perry MD CPT-92198 [facility] 13:01:22 AUDIO VISUAL COLLECTIONS COORDINATOR Est Patient Detailed - [id number] Eden Perry MD CPT-52536 [facility] 13:02:09 AUDIO VISUAL COLLECTIONS COORDINATOR Est Patient Detailed - 13543 Eden Perry MD CPT-10815 [facility] 13:45:24 CDT Est Patient Exp Problem - [id number] Eden Perry MD CPT-24399 [facility] 13:49:01 CDT Est Patient Exp Problem - [id number] Eden Perry MD CPT-47118 [facility] 14:05:45 CDT Est Patient Detailed - 67513 Eden Perry MD CPT-35000 [facility] 13:02:43 AUDIO VISUAL COLLECTIONS COORDINATOR Est Patient Detailed - 91182 Eden Perry MD CPT-11745 [facility] 13:05:39 AUDIO VISUAL COLLECTIONS COORDINATOR Est Patient Detailed - [id number] Eden Perry MD CPT-02225 [facility] 11:08:59 CDT Est Patient Exp Problem - [id number] Ernesto Hanson MD CPT-35817 [facility] [employer] 15:17:46 CDT Est Patient Exp Problem - [id number] Ernesto Hanson MD CPT-56289 [facility] [employer] 08:40:05 AUDIO VISUAL COLLECTIONS COORDINATOR Est Patient Exp Problem - 72131 Lo Eason MD CPT-43200 [facility] 11:16:50 AUDIO VISUAL COLLECTIONS COORDINATOR Est Patient Exp Problem - 13449 Lo Eason MD CPT-60061 [facility] 10:29:35 CDT Est Patient Exp Problem - [id number] Lo Eason MD CPT-62941 [facility] 08:17:43 CDT Est Patient Problem Focus - [id number] Lo Eason MD CPT-02338 [facility] 09:01:26 CDT Est Patient Exp Problem - 50724 Eden Perry MD CPT-76006 [facility] 14:24:56 AUDIO VISUAL COLLECTIONS COORDINATOR Est Patient Problem Focus - [id number] Radha Ramos [employer] CPT-68940 [facility] 14:11:57 AUDIO VISUAL COLLECTIONS COORDINATOR Est Patient Problem Focus - 31296 Radha Ramos [employer] CPT-37037 [facility] 15:17:33 CDT Est Patient Exp Problem - 64594 [facility] Funk [facility]:01:24 CDT Est Patient Exp Problem - 68143 Harriet Funk MD CPT-33484 [facility] 09:45:29 AUDIO VISUAL COLLECTIONS COORDINATOR Est Patient Exp Problem - 53622 Harriet Funk [facility] 12:38:17 CDT Est Patient Exp Problem - 11379 Harriet Funk MD CPT-56364 [facility] 09:11:37 CDT Ofc Vst, Est Level III Jethro Falcon MD CPT-33652 [facility] 11:24:53 AUDIO VISUAL COLLECTIONS COORDINATOR Ofc Vst, Est Level III Jethro Falcon MD CPT-46205 [facility] 09:47:12 AUDIO VISUAL COLLECTIONS COORDINATOR Ofc Vst, New Level I Jethro Falcon MD CPT-10885 [facility] 09:04:14 CDT Est Patient Nurse - Only Visit - [id number] Farhana Valentino CPT-17991 [facility] Procedures Code Procedure Name Date Entry Date Standard Description CPT-26700 [facility] - Adult 14:00:20 AUDIO VISUAL COLLECTIONS COORDINATOR CPT-00176 [facility] - Adult 11:53:08 AUDIO VISUAL COLLECTIONS COORDINATOR CPT-43613 Handling of specimen for transfer 13:02:09 AUDIO VISUAL COLLECTIONS COORDINATOR CPT-98386 Venipuncture 13:02:02 AUDIO VISUAL COLLECTIONS COORDINATOR CPT-67171 Rapid Strep - In House 13:49:23 CDT CPT-08750 Urinalysis - Dip only - In House 13:49:21 CDT CPT-93242 Urinalysis - Dip only - In House 12:59:09 AUDIO VISUAL COLLECTIONS COORDINATOR CPT-05344 Urinalysis - - In House 12:59:06 AUDIO VISUAL COLLECTIONS COORDINATOR CPT-40849 Urinalysis - - In House 15:17:46 CDT CPT-33036 Urinalysis - Dip only - In House 08:40:01 AUDIO VISUAL COLLECTIONS COORDINATOR CPT-J7609 Albuterol, inhalation solution, unit dose, 1 mg 11:37:11 CDT CPT-01134 [facility] 14:12:04 AUDIO VISUAL COLLECTIONS COORDINATOR CPT-08981 Admin of Vaccine - Injection - 1 14:12:04 AUDIO VISUAL COLLECTIONS COORDINATOR CPT-63307 Urinalysis - - In House 14:12:01 AUDIO VISUAL COLLECTIONS COORDINATOR CPT-97410 Urinalysis - Dip only - In House 14:12:01 AUDIO VISUAL COLLECTIONS COORDINATOR CPT-50808 Glucose Stick 09:45:29 AUDIO VISUAL COLLECTIONS COORDINATOR CPT-76034 Hepatitis B - Adult 09:04:14 CDT CPT-76056 Admin of Vaccine - Injection - 1 09:04:14 CDT
[2018-06-08 12:36] LABS: BASOPHILS # (AUTO) 0.1 (0.0-0.1); BASOPHILS % 0.6 % (0.0-1.0); EOSINOPHILS # (AUTO) 0.5 (0.0-0.4); EOSINOPHILS % 5.5 % (0.0-6.0); HEMATOCRIT 26.3 % (34.2-44.1); HEMOGLOBIN 8.3 g/dL (12.0-16.0); LYMPHOCYTES # (AUTO) 2.4 (1.0-3.2); LYMPHOCYTES % 27.4 % (18.0-39.1); MEAN CORPUSCULAR HEMOGLOBIN 27.1 pg (28-32); MEAN CORPUSCULAR HGB CONC 31.6 g/dL (31-35); MEAN CORPUSCULAR VOLUME 85.9 fL (81-99); MONOCYTES # (AUTO) 0.7 (0.2-0.8); MONOCYTES % 7.9 % (4.4-11.3); NEUTROPHILS # (AUTO) 5.1 (2.1-6.9); NEUTROPHILS % 57.5 % (38.7-80.0); PLATELET COUNT 371 x10e3/uL (140-360); RED BLOOD COUNT 3.06 x10e6/uL (3.6-5.1); RED CELL DISTRIBUTION WIDTH 14.5 % (11.7-14.4)
[2018-06-08 12:39] LABS: INR 0.92; PARTIAL THROMBOPLASTIN TIME 27.7 seconds (23.8-35.5); PROTHROMBIN TIME 12.8 seconds (11.9-14.5)
--- NOTE | 2018-06-08 12:46 | Diagnostic Imaging Report ---
EXAMINATION: CHEST 2 VIEWS INDICATION: Shortness of breath. COMPARISON: None FINDINGS: TUBES and LINES: None. LUNGS: Lungs are well inflated. Lungs are clear. There is no evidence of pneumonia or pulmonary edema. PLEURA: No pleural effusion or pneumothorax. HEART AND MEDIASTINUM: The cardiomediastinal silhouette is unremarkable. BONES AND SOFT TISSUES: No acute osseous lesion. Soft tissues are unremarkable. UPPER ABDOMEN: No free air under the diaphragm. IMPRESSION: No acute radiographic abnormality. Signed by: Dr. Brian Ashley MD on 06/08/2018 12:43 PM
[2018-06-08 12:47] LABS: ALANINE AMINOTRANSFERASE 28 IU/L (0-55); ALBUMIN 2.8 g/dL (3.5-5.0); ALBUMIN/GLOBULIN RATIO 0.8 (0.8-2.0); ALKALINE PHOSPHATASE 62 IU/L (40-150); ANION GAP 10.4 mmol/L (8-16); BLOOD UREA NITROGEN 13 mg/dL (7-26); BUN/CREATININE RATIO 20 (6-25); CALCIUM 8.9 mg/dL (8.4-10.2); CARBON DIOXIDE 29 mmol/L (22-29); CHLORIDE 104 mmol/L (98-107); CREATINE KINASE 100 IU/L (29-168); CREATININE, SERUM 0.64 mg/dL (0.57-1.11); EST GLOMERULAR FILTRATION RATE > 60 ML/MIN (60-); GLUCOSE 102 mg/dL (74-118); POTASSIUM 3.4 mmol/L (3.5-5.1); SODIUM 140 mmol/L (136-145)
[2018-06-08 12:53] LABS: CLARITY,URINE CLEAR (CLEAR); COLOR,URINE YELLOW (YELLOW); LEUKOCYTE ESTERASE ,URINE NEGATIVE (NEGATIVE)
[2018-06-08 12:54] LABS: BILIRUBIN,URINE NEGATIVE (NEGATIVE); KETONES,URINE NEGATIVE (NEGATIVE); NITRITE,URINE NEGATIVE (NEGATIVE); PROTEIN,URINE DIPSTICK NEGATIVE (NEGATIVE); URINE UROBILINOGEN 0.2 mg/dL (0.2 - 1)
[2018-06-08 13:05] LABS: RBC,URINE 0-5 /HPF (0-5); WBC,URINE (MAN) 0-5 /HPF (0-5)
[2018-06-08 13:06] LABS: BACTERIA,URINE MODERATE /HPF; EPITHELIAL CELLS,URINE MODERATE /LPF
[2018-06-08 13:07] LABS: AMORPHOUS SEDIMENT,URINE MODERATE (FEW)
[2018-06-08] MEDS ORDERED: SODIUM CHLORIDE 0.9% 1000ML 1,000 ML IV ONE (13:45)
[2018-06-08] MEDS ORDERED: IOPAMIDOL 370 MG/ML 200 ML INFUS..BTL INJ ONE (15:27)
[2018-06-08] MEDS ORDERED: SODIUM CHLORIDE 0.9% 50ML 50 ML ONE (15:27)
--- NOTE | 2018-06-08 16:22 | Diagnostic Imaging Report ---
EXAMINATION: CT of the chest, abdomen and pelvis with contrast. TECHNIQUE: Helical CT images of the chest, abdomen and pelvis were performed from the lung apices to the lesser trochanters after the intravenous administration of 150 cc of Isovue 300 and the oral administration of none. Coronal and sagittal reformatted images were obtained. Dose modulation, iterative reconstruction, and/or weight based adjustment of the mA/kV was utilized to reduce the radiation dose to as low as reasonably achievable. COMPARISON: None. CLINICAL HISTORY:Shortness of breath, wheezing DISCUSSION: CHEST: LINES/TUBES: None. LUNGS AND AIRWAYS: No airspace consolidation or concerning mass. No pulmonary embolism. . PLEURA: The pleural spaces are clear. HEART AND MEDIASTINUM: The thyroid gland is normal. The heart and pericardium are within normal limits. LYMPH NODES: No significant mediastinal, hilar or axillary lymphadenopathy is seen. BONES AND SOFT TISSUES: No bony destructive lesions. No soft tissue abnormalities. ABDOMEN/PELVIS: HEPATOBILIARY:Increased density within the gallbladder. SPLEEN: No splenomegaly. PANCREAS: No focal masses or ductal dilatation. ADRENALS: No adrenal nodules. KIDNEYS/URETERS: No hydronephrosis, stones, or solid mass lesions. PELVIC ORGANS/BLADDER: Fibroid uterus. Bladder unremarkable. PERITONEUM/RETROPERITONEUM: No free air or fluid. LYMPH NODES: No intra-abdominal,retroperitoneal, pelvic or inguinal lymphadenopathy. VESSELS: The celiac trunk,superior and inferior mesenteric and bilateral renal arteries are patent The portal, superior mesenteric and splenic veins are patent. GI TRACT: No distention or wall thickening. BONES AND SOFT TISSUES: Soft tissue stranding throughout the abdomen with postsurgical change and soft tissue gas within the abdominal fat. Surgical drain present. No abscess. IMPRESSION: No pulmonary embolism. Soft tissue stranding and subcutaneous edema within the anterior abdominal fat with postsurgical change. No abscess. Signed by: Dr. Cristian Vinson M.D. on 06/08/2018 4:18 PM
[2018-06-08 17:16] VITALS: BP 127/84
== END 2018-06-08 17:21 | disposition home or self-care (01) ==
LOC: ER 10:34
DX: R06.00 Dyspnea, unspecified (principal); D50.0 Iron deficiency anemia secondary to blood loss (chronic)
CPT/HCPCS: 36415; 71046; 71260; 74177; 80053; 81001; 82550; 82553; 84484; 85025; 85379; 85610; 85730; 87040; 99284; Q9967